=== PATIENT | female | born 1985 | race American Indian/Alaskan Native ===

== ENCOUNTER 2016-08-01 19:27 | Emergency (ER) | payer MEDICAID ==
[2016-08-01 20:52] LABS: Bilirubin,Urine NEG (Negative); Blood,Urine MOD (Negative); Ketones,Urine NEG (Negative); Leukocyte Esterase,Urine NEG (Negative); Mucus,Urine 3+ /HPF; Nitrite,Urine NEG (Negative); Protein,Urine <15 mg/dL mg/dL (Negative)
[2016-08-01 21:18] LABS: Basophils % (Auto) 0.5 % (0.0-1.8); Eosinophils % (Auto) 0.5 % (0.0-4.3); Hematocrit 34.5 % (30.3-42.9); Hemoglobin 11.1 gm/dl (10.1-14.3); Mean Corpuscular HGB Conc 32 % (30-34); Mean Corpuscular Volume 78 fl (79-97); Platelet Count 386 K/mm3 (140-440); Red Blood Count 4.44 M/mm3 (3.65-5.03); Red Cell Distribution Width 18.6 % (13.2-15.2); White Blood Count 7.7 K/mm3 (4.5-11.0)
[2016-08-01 21:22] LABS: Mean Corpuscular Hemoglobin 25 pg (28-32)
[2016-08-01] MEDS ORDERED: TYLENOL PO ONE (21:48)
--- NOTE | 2016-08-01 21:48 | Emergency Department Report ---
HPI - General Chief Complaint: Vaginal Bleeding Time Seen by Provider: 08/01/16 21:30 - HPI HPI: This is a 31-year-old Afro-[place] female who presents to the emergency department from home with complaint of a 2 day history of lower abdominal sharp , cramping pain, as well as some mild to moderate vaginal bleeding that started just prior to presentation. Patient is currently 11 weeks and 5 days and is with 2 previous abortions/D&C, one miscarriage and 2 children via C -section. Her [facility]. Patient has been taking some Tylenol for her discomfort without much relief. She denies any fever, back pain, dysuria, vaginal discharge. No recent travel or sick contacts at home. She denies any other medical conditions. ED Past Medical Hx - Past Medical History Previous Medical History?: No - Surgical History Additional Surgical History: x2. D&C x2 - Social History Smoking Status: Never Smoker Substance Use Type: None ED Review of Systems ROS: Stated complaint: VAGINAL BLEEDING Other details as noted in HPI Comment: All other systems reviewed and negative Constitutional: denies: chills, fever Eyes: denies: eye pain, eye discharge, vision change ENT: denies: ear pain, throat pain Respiratory: denies: cough, shortness of breath, wheezing Cardiovascular: denies: chest pain, palpitations Gastrointestinal: abdominal pain. denies: nausea, vomiting Genitourinary: other (vag bleed). denies: urgency, dysuria, discharge Musculoskeletal: denies: back pain, joint swelling, arthralgia Skin: denies: rash, lesions Neurological: denies: headache, weakness, paresthesias Physical Exam - Physical Exam Vital Signs: Vital Signs 08/01/16 19:38 Temperature 98.1 F Pulse Rate 92 H Respiratory 18 Rate Blood Pressure 118/69 O2 Sat by Pulse 99 Oximetry Physical Exam: GENERAL: The patient is well-developed well-nourished. HEENT: Normocephalic. Atraumatic. Extraocular motions are intact. Patient has moist mucous membranes. Pupils equal reactive to light bilaterally. NECK: Supple. Trachea is midline. CHEST/LUNGS: Clear to auscultation. There is no respiratory distress noted. HEART/CARDIOVASCULAR: Regular. There is no tachycardia. There is no gallop rub or murmur. ABDOMEN: Abdomen is soft, nontender. Unable to reproduce patient's abdominal discomfort to palpation. No guarding or rebound tenderness. Patient has normal bowel sounds. There is no abdominal distention. SKIN: There is no rash. There is no edema. There is no diaphoresis. NEURO: The patient is awake, alert, and oriented. The patient is cooperative. The patient has no focal neurologic deficits. The patient has normal speech. MUSCULOSKELETAL: There is no tenderness or deformity. There is no limitation range of motion. There is no evidence of acute injury. ED Course Vital Signs 08/01/16 19:38 Temperature 98.1 F Pulse Rate 92 H Respiratory 18 Rate Blood Pressure 118/69 O2 Sat by Pulse 99 Oximetry ED Medical Decision Making - Lab Data Result diagrams: 08/01/16 20:55 08/01/16 21:58 - Radiology Data Radiology results: report reviewed Transvaginal/ ultrasound shows a single live intrauterine at about 12 weeks and 2 days. Low-lying placenta. Marginal placenta previa cannot be excluded. No adnexal masses. 1.9 cm right ovarian cystic structure which may reflect corpus luteum. - Medical Decision Making 31-year-old female presents to the emergency department with some lower abdominal pain but more concerning to her was some recent mild to moderate vaginal bleeding. Patient's labs are unremarkable. Transvaginal says ultrasound shows a live intrauterine at to 12 weeks and 2 days. There is a low-lying placenta that could be marginal placenta previa but does not appear to be an issue with her current at this time. She was given some Tylenol for discomfort with some relief. Vital signs stable throughout her ED course. She has good follow-up with [facility]. Patient appears safe for discharge home but has been encouraged to see OB in the next few days. She will return to the ER with any worsening of her symptoms or any acute distress. - Differential Diagnosis , threatened miscarriage, spontaneous , fibroids Critical Care Time: No Critical care attestation.: If time is entered above; I have spent that time in minutes in the direct care of this critically ill patient, excluding procedure time. ED Disposition Clinical Impression: Threatened Qualifiers: Weeks of gestation: 12 weeks Qualified Code(s): Z3A.12 - 12 weeks gestation of Abdominal pain Qualifiers: Abdominal location: lower abdomen, unspecified Qualified Code(s): R10.30 - Lower abdominal pain, unspecified Disposition: DISCHARGED TO HOME OR SELFCARE Is pt being admited?: No Does the pt Need Aspirin: No Condition: Stable Instructions: Threatened Miscarriage (ED), (ED), Abdominal Pain (ED) Additional Instructions: Please follow up with [facility] in the next few days. Return to the emergency department with any worsening of your symptoms or any acute distress. Referrals: PRIMARY CAREMD [Primary Care Provider] - 3-5 Days [facility] [Provider Group] - 3-5 Days Forms: Work/School Release Form(ED) Time of Disposition: 00:36
[2016-08-01 22:41] LABS: Alanine Aminotransferase 7 units/L (7-56); Albumin 3.8 g/dL (3.9-5); Alkaline Phosphatase 78 units/L (35-129); Anion Gap 20 mmol/L; BUN/Creatinine Ratio 6.66; Bilirubin,Total 0.2 mg/dL (0.1-1.2); Blood Urea Nitrogen 4 mg/dL (7-17); Calcium 9.2 mg/dL (8.4-10.2); Carbon Dioxide 22 mmol/L (22-30); Chloride 95.9 mmol/L (98-107); Glucose 81 mg/dL (65-100); Potassium 4.2 mmol/L (3.6-5.0); Sodium 134 mmol/L (137-145); Total Protein 7.7 g/dL (6.3-8.2)
--- NOTE | 2016-08-02 00:10 | Ultrasound Report ---
FINAL REPORT EXAM: US OB TRANSVAGINAL HISTORY: vaginal bleeding, abd pain COMPARISON: None available. TECHNIQUE: Several real-time grayscale and color Doppler images were obtained. Transabdominal and transvaginal exam. FINDINGS: Uterus measures 11.4 x 7.0 x 8.0 centimeters. Single live IUP. Estimated gestational age 12 weeks 2 days. Estimated delivery date February 11, 2017. heart rate 161 beats per minute. Placenta location anterior. Low lying placenta. Marginal placenta previa cannot be excluded.. Limited evaluation of structures due to early gestational age. Probable tiny placental Clay at the superior margin of the placenta measuring up to 1.2 x 0.5 x 0.3 centimeters. Cervix is closed. Right ovary measures 3.7 x 2.3 x 2.7 centimeters. Left ovary measures 2.4 x 1.9 x 1.1 centimeters. Within the right ovary there is a 1.9 x 1.7 centimeter cystic structure which may reflect corpus luteum. There is gross vascular flow to the ovaries. IMPRESSION: Single live IUP. Estimated gestational age 12 weeks 2 days. Estimated delivery date February 11, 2017. Low lying placenta. Marginal placenta previa cannot be excluded. This may relate to early gestational age. Followup exam later in gestation suggested to assess positioning of the placenta. Limited evaluation of structures due to early gestational age. No adnexal masses. 1.9 centimeter right ovarian cystic structure which may reflect corpus luteum.
--- NOTE | 2016-08-02 00:11 | Ultrasound Report ---
FINAL REPORT EXAM: US OB \T\lt; = 14 WEEKS FETUS HISTORY: vaginal bleeding, abd pain COMPARISON: None available. TECHNIQUE: Several real-time grayscale and color Doppler images were obtained. Transabdominal and transvaginal exam. FINDINGS: Uterus measures 11.4 x 7.0 x 8.0 centimeters. Single live IUP. Estimated gestational age 12 weeks 2 days. Estimated delivery date February 11, 2017. heart rate 161 beats per minute. Placenta location anterior. Low lying placenta. Marginal placenta previa cannot be excluded.. Limited evaluation of structures due to early gestational age. Probable tiny placental Clay at the superior margin of the placenta measuring up to 1.2 x 0.5 x 0.3 centimeters. Cervix is closed. Right ovary measures 3.7 x 2.3 x 2.7 centimeters. Left ovary measures 2.4 x 1.9 x 1.1 centimeters. Within the right ovary there is a 1.9 x 1.7 centimeter cystic structure which may reflect corpus luteum. There is gross vascular flow to the ovaries. IMPRESSION: Single live IUP. Estimated gestational age 12 weeks 2 days. Estimated delivery date February 11, 2017. Low lying placenta. Marginal placenta previa cannot be excluded. This may relate to early gestational age. Followup exam later in gestation suggested to assess positioning of the placenta. Limited evaluation of structures due to early gestational age.
[2016-08-02 00:51] VITALS: BP 122/77
== END 2016-08-02 01:10 | disposition home or self-care (01) ==
LOC: ED 19:27
DX: O20.0 Threatened abortion (principal); Z3A.12 12 weeks gestation of pregnancy; R10.30 Lower abdominal pain, unspecified
CPT/HCPCS: 36415; 76801; 76817; 80053; 81001; 84702; 85025; 86850; 86900; 86901

== ENCOUNTER 2016-09-28 22:53 | Outpatient (CLI) | payer MEDICAID ==
[2016-09-28] MEDS ORDERED: LACTATED RINGERS 500 ML IV ONE (23:01)
[2016-09-28 23:17] VITALS: BP 117/59
[2016-09-29 00:30] LABS: Bacteria,Urine 1+ /HPF (Negative); Bilirubin,Urine NEG (Negative); Blood,Urine NEG (Negative); Ketones,Urine NEG (Negative); Leukocyte Esterase,Urine TR (Negative); Mucus,Urine FEW /HPF; Nitrite,Urine NEG (Negative); Protein,Urine <15 mg/dL mg/dL (Negative); Urobilinogen,Urine < 2.0 mg/dL (<2.0)
== END 2016-09-29 01:01 | disposition home or self-care (01) ==
LOC: TRG 22:53
PROVIDERS: ATTEND Obstetrics & Gynecology
DX: O26.892 Other specified pregnancy related conditions, second trimester (principal); N94.89 Other specified conditions associated with female genital organs and menstrual cycle; Z3A.20 20 weeks gestation of pregnancy
CPT/HCPCS: 81001

== ENCOUNTER 2016-10-24 23:24 | Outpatient (CLI) | payer MEDICAID ==
[2016-10-24 23:39] VITALS: BP 108/59
[2016-10-24] MEDS ORDERED: LACTATED RINGERS 1,000 ML IV ONE (23:39)
[2016-10-25 00:05] LABS: Bilirubin,Urine NEG (Negative); Blood,Urine NEG (Negative); Ketones,Urine NEG (Negative); Leukocyte Esterase,Urine NEG (Negative); Mucus,Urine FEW /HPF; Nitrite,Urine NEG (Negative); Protein,Urine <15 mg/dL mg/dL (Negative); Urobilinogen,Urine < 2.0 mg/dL (<2.0); WBC,Urine < 1.0 /HPF (0.0-6.0)
== END 2016-10-25 00:38 | disposition home or self-care (01) ==
LOC: TRG 23:24
PROVIDERS: ATTEND Obstetrics & Gynecology
DX: O62.9 Abnormality of forces of labor, unspecified (principal); Z3A.23 23 weeks gestation of pregnancy
CPT/HCPCS: 81001

== ENCOUNTER 2016-11-13 00:14 | Outpatient (CLI) | payer MEDICAID ==
[2016-11-13 00:34] VITALS: BP 103/59
[2016-11-13] MEDS ORDERED: LACTATED RINGERS 500 ML IV ONE (00:54)
[2016-11-13 01:38] LABS: Bilirubin,Urine NEG (Negative); Blood,Urine NEG (Negative); Ketones,Urine NEG (Negative); Leukocyte Esterase,Urine NEG (Negative); Nitrite,Urine NEG (Negative); Protein,Urine <15 mg/dL mg/dL (Negative); Urobilinogen,Urine < 2.0 mg/dL (<2.0); WBC,Urine < 1.0 /HPF (0.0-6.0)
== END 2016-11-13 01:48 | disposition home or self-care (01) ==
LOC: TRG 00:14
PROVIDERS: ATTEND Obstetrics & Gynecology
DX: O42.92 Full-term premature rupture of membranes, unspecified as to length of time between rupture and onset of labor (principal); Z3A.26 26 weeks gestation of pregnancy
CPT/HCPCS: 81001; J7120

== ENCOUNTER 2016-12-04 01:13 | Outpatient (CLI) | payer MEDICAID ==
[2016-12-04 01:29] VITALS: BP 108/58
[2016-12-04] MEDS ORDERED: LACTATED RINGERS 500 ML IV ONE (01:31)
[2016-12-04 02:44] LABS: Bilirubin,Urine NEG (Negative); Blood,Urine SM (Negative); Ketones,Urine NEG (Negative); Leukocyte Esterase,Urine NEG (Negative); Mucus,Urine 1+ /HPF; Nitrite,Urine NEG (Negative); Protein,Urine <15 mg/dL mg/dL (Negative); Urobilinogen,Urine < 2.0 mg/dL (<2.0)
== END 2016-12-04 02:50 | disposition home or self-care (01) ==
LOC: TRG 01:13
PROVIDERS: ATTEND Obstetrics & Gynecology
DX: O47.03 False labor before 37 completed weeks of gestation, third trimester (principal); Z3A.29 29 weeks gestation of pregnancy
CPT/HCPCS: 81001; 96360; J7120

== ENCOUNTER 2016-12-17 15:17 | Outpatient (CLI) | payer MEDICAID ==
[2016-12-17 15:42] VITALS: BP 115/62
[2016-12-17] MEDS ORDERED: LACTATED RINGERS 500 ML IV ONE (17:27)
== END 2016-12-17 16:22 | disposition home or self-care (01) ==
LOC: TRG 15:17
PROVIDERS: ATTEND Obstetrics & Gynecology
DX: O47.03 False labor before 37 completed weeks of gestation, third trimester (principal); Z3A.31 31 weeks gestation of pregnancy
CPT/HCPCS: 59025

== ENCOUNTER 2016-12-28 15:37 | Outpatient (CLI) | payer MEDICAID ==
[2016-12-28 16:10] VITALS: BP 109/61
[2016-12-28] MEDS ORDERED: CELESTONE SOLUSPAN IM ONE (17:00)
[2016-12-28] MEDS ORDERED: LACTATED RINGERS 500 ML IV ONE ×2 (17:00→18:00)
[2016-12-28] MEDS ORDERED: PROCARDIA*For Tocolysis only ONE (17:51)
[2016-12-28] MEDS ORDERED: BRETHINE SUB-Q SCH (18:00)
[2016-12-28] MEDS ORDERED: PROCARDIA XL PO SCH (22:00)
== END 2016-12-28 18:43 | disposition home or self-care (01) ==
LOC: TRG 15:37
PROVIDERS: ATTEND Obstetrics & Gynecology
DX: O47.03 False labor before 37 completed weeks of gestation, third trimester (principal); Z3A.33 33 weeks gestation of pregnancy
CPT/HCPCS: 96360; 96361; 96372; J0702; J3105; J7120

== ENCOUNTER 2016-12-29 16:39 | Outpatient (CLI) | payer MEDICAID ==
[2016-12-29] MEDS ORDERED: CELESTONE SOLUSPAN IM ONE (17:50)
== END 2016-12-29 17:01 | disposition home or self-care (01) ==
LOC: TRG 16:39
PROVIDERS: ATTEND Obstetrics & Gynecology
DX: O47.03 False labor before 37 completed weeks of gestation, third trimester (principal); Z3A.30 30 weeks gestation of pregnancy
CPT/HCPCS: 96372; J0702